=== PATIENT | female | born 1975 | race Caucasian/White ===

== ENCOUNTER → 2018-09-28 | Outpatient (REF) | payer OTHER ==
[~2018-09-28] MED LIST: ATOR1TAB21; DULE100A INH; INSUHUMDS SC; OMEP20CA3 PO; PANT40TA3 PO; SUCR1SS PO; TYLE650T25 PO; VENTAER
== END ==
LOC: M LAB LCGH 11:12
PROVIDERS: ATTEND Nurse Practitioner Adult Health
DX: Z12.4 Encounter for screening for malignant neoplasm of cervix (principal)

== ENCOUNTER 2019-02-21 21:24 | Emergency (ER) | payer OTHER ==
[~2019-02-21] VITALS: Ht 152.4 cm; Wt 68.6 kg
[2019-02-21 21:24] VITALS: BP 161/84
[~2019-02-21 21:24] MED LIST changes: -OMEP20CA3 PO; +OMEP20CA4 PO
== END 2019-02-21 23:54 | disposition home or self-care (01) ==
LOC: M ED 21:24
DX: Z01.10 Encounter for examination of ears and hearing without abnormal findings (principal); J45.909 Unspecified asthma, uncomplicated; E11.9 Type 2 diabetes mellitus without complications; Z96.41 Presence of insulin pump (external) (internal); Z79.4 Long term (current) use of insulin; Z13.9 Encounter for screening, unspecified

== ENCOUNTER 2019-03-02 19:28 | Emergency (ER) | payer OTHER ==
[~2019-03-02] VITALS: Ht 152.4 cm; Wt 68.6 kg
[2019-03-02 20:12] LABS: BASO # 0.1 10^3/uL (0.0-0.2); BASO % 0.7 % (0.0-1.0); EOS # 0.5 10^3/uL (0.0-0.5); EOS % 6.9 % (0.0-3.0); HEMATOCRIT 35.6 % (36.0-47.0); LYMPH # 1.5 10^3/uL (1.5-5.0); LYMPH % 21.6 % (24.0-44.0); MEAN CORPUSCULAR HEMOGLOBIN 31.7 pg (27.0-33.0); MEAN CORPUSCULAR HGB CONC 33.7 g/dl (32.0-36.5); MEAN CORPUSCULAR VOLUME 94.2 fl (80.0-96.0); MONO # 0.7 10^3/uL (0.0-0.8); MONO % 10.1 % (0.0-5.0); NEUTROPHILS % 60.3 % (36.0-66.0); PLATELET COUNT, AUTOMATED 374 10^3/uL (150-450); RED BLOOD COUNT 3.78 10^6/uL (4.00-5.40); WHITE BLOOD COUNT 6.7 10^3/uL (4.0-10.0)
--- NOTE | 2019-03-02 20:17 | REPVR ---
EXAM: CT Head Without Contrast EXAM DATE/TIME: 03/02/2019 7:57 PM CLINICAL HISTORY: 43 years old, female; Dizziness; Additional info: CVA - nursing interventions must not delay CT TECHNIQUE: Imaging protocol: Computed tomography of the head without contrast. Radiation optimization: All CT scans at this facility use at least one of these dose optimization techniques: automated exposure control; mA and/or kV adjustment per patient size (includes targeted exams where dose is matched to clinical indication); or iterative reconstruction. Other technique: STROKE PROTOCOL was implemented. COMPARISON: CT Head without contrast 08/31/2015 1:31 AM FINDINGS: Brain: No hemorrhage. Unremarkable white matter for the patient's age. No mass effect. No evolving territorial infarct. Ventricles: Stable. No ventriculomegaly. Bones/joints: Unremarkable. No acute fracture. Sinuses: Visualized sinuses are unremarkable. No fluid levels. Mastoid air cells: Visualized mastoid air cells are well aerated. Soft tissues: Unremarkable. IMPRESSION: 1. No acute intracranial abnormality seen. 2. ASPECT ([place] Stroke Program Early CT Score) = 10. Electronically signed by: Sara Salazar On 03/02/2019 20:16:44 PM
[2019-03-02 20:25] LABS: INR 0.98; PROTHROMBIN TIME 12.7 SECONDS (11.8-14.0)
[2019-03-02 20:38] LABS: BLOOD UREA NITROGEN 6 MG/DL (7-18); CALCIUM LEVEL 8.7 MG/DL (8.5-10.1); CARBON DIOXIDE LEVEL 29 MEQ/L (21-32); CHLORIDE LEVEL 97 MEQ/L (98-107); CK-MB VALUE MASS < 1.0 NG/ML (<3.6); CPK CREATINE PHOSPHOKINASE 58 U/L (26-192); CREATININE FOR GFR 0.76 MG/DL (0.55-1.30); GLOMERULAR FILTRATION RATE > 60.0 (>58); GLUCOSE, FASTING 235 MG/DL (70-100); MB/CK RELATIVE INDEX 1.72 (< OR =4); POTASSIUM SERUM 4.1 MEQ/L (3.5-5.1); SODIUM LEVEL 131 MEQ/L (136-145); TROPONIN I < 0.02 NG/ML (< 0.10)
[2019-03-02] MEDS ORDERED: LORazepam 2 MG/ML VIAL (J2060) IV STA (23:24)
[2019-03-02 23:27] LABS: CK-MB VALUE MASS < 1.0 NG/ML (<3.6); CPK CREATINE PHOSPHOKINASE 71 U/L (26-192); MB/CK RELATIVE INDEX 1.41 (< OR =4); TROPONIN I < 0.02 NG/ML (< 0.10)
--- NOTE | 2019-03-03 01:20 | REPVR ---
EXAM: MR Angiogram Head Without Contrast, Arteries EXAM DATE/TIME: 03/02/2019 12:04 AM CLINICAL HISTORY: 43 years old, female; Headache; Patient HX: H/a facial numbness on RT side that has since subsided; Additional info: Right sided facial numbness with difficulty spelling words TECHNIQUE: Imaging protocol: MR angiogram head without contrast. Exam focused on the arteries. 3D rendering: MIP reconstructed images were created and reviewed. COMPARISON: CT Head without contrast 03/02/2019 7:56 PM FINDINGS: Right internal carotid artery: Unremarkable. Intracranial segment is patent with no significant stenosis. No aneurysm. Right anterior cerebral artery: Unremarkable. No occlusion or significant stenosis. No aneurysm. Right middle cerebral artery: Unremarkable. No occlusion or significant stenosis. No aneurysm. Right posterior cerebral artery: Unremarkable. No occlusion or significant stenosis. No aneurysm. Right vertebral artery: Unremarkable. No occlusion or significant stenosis. No aneurysm. Left internal carotid artery: Unremarkable. Intracranial segment is patent with no significant stenosis. No aneurysm. Left anterior cerebral artery: Unremarkable. No occlusion or significant stenosis. No aneurysm. Left middle cerebral artery: Unremarkable. No occlusion or significant stenosis. No aneurysm. Left posterior cerebral artery: Unremarkable. No occlusion or significant stenosis. No aneurysm. Left vertebral artery: Unremarkable. No occlusion or significant stenosis. No aneurysm. Basilar artery: Unremarkable. No occlusion or significant stenosis. No aneurysm. IMPRESSION: No acute findings. Electronically signed by: Raghav Ferguson On 03/03/2019 01:19:49 AM
--- NOTE | 2019-03-03 01:28 | REPVR ---
EXAM: MR Head Without Contrast EXAM DATE/TIME: 03/02/2019 12:04 AM CLINICAL HISTORY: 43 years old, female; Other: H/a facial numbness on RT side that has since subsided; Additional info: Right sided facial numbness with difficulty spelling words TECHNIQUE: Imaging protocol: MR of the head without contrast. COMPARISON: CT Head without contrast 03/02/2019 7:56 PM FINDINGS: Brain: Normal. No acute infarct. No hemorrhage. No significant white matter disease. No edema. Ventricles: Normal. No ventriculomegaly. Bones/joints: Unremarkable. Soft tissues: Normal. Sinuses: Mild ethmoid and maxillary sinus mucosal thickening. No acute sinusitis. Mastoid air cells: Normal as visualized. No mastoid effusion. Orbits: Unremarkable. IMPRESSION: No acute intracranial pathology. Electronically signed by: Raghav Ferguson On 03/03/2019 01:27:35 AM
[2019-03-03 02:48] VITALS: BP 111/57
--- NOTE | 2019-03-03 08:13 | ECGEPIP ---
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
--- NOTE | 2019-03-03 08:19 | ECGEPIP ---
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
--- NOTE | 2019-03-03 08:52 | REP ---
Chest x-ray: Single view. History: CVA. Comparison chest x-ray: September 12, 2012. Findings: EKG monitoring electrodes overlie the chest. Lungs are symmetrically aerated and clear. The pleural angles are sharp. Cardiomediastinal silhouette and bony thorax are unremarkable. Impression: Negative PA chest. Electronically Signed by Adolph Littlejohn MD 03/03/2019 12:49 P
== END 2019-03-03 03:03 | disposition home or self-care (01) ==
LOC: M ED 19:28
DX: R20.2 Paresthesia of skin (principal); R42 Dizziness and giddiness; E10.9 Type 1 diabetes mellitus without complications; E78.5 Hyperlipidemia, unspecified; G43.909 Migraine, unspecified, not intractable, without status migrainosus; Z91.048 Other nonmedicinal substance allergy status; Z79.4 Long term (current) use of insulin; Z79.51 Long term (current) use of inhaled steroids; Z79.899 Other long term (current) drug therapy
CPT/HCPCS: 70450; 70544; 70551; 71045; 80048; 82550; 82553; 84484; 85025; 85610; 85730; 86850; 86900; 86901; 93005; 93041; 94760; 96374; 99285; J2060

== ENCOUNTER → 2019-07-18 | Outpatient (CLI) | payer OTHER ==
[~2019-07-18] MED LIST changes: +OMEP1CAP73 PO; -OMEP20CA4 PO
[2019-07-18 07:58] LABS: BASO # 0.1 10^3/uL (0.0-0.2); EOS # 0.5 10^3/uL (0.0-0.5); EOS % 4.3 % (0.0-3.0); HEMATOCRIT 41.2 % (36.0-47.0); HEMOGLOBIN 13.5 g/dl (12.0-15.5); LYMPH # 1.4 10^3/uL (1.5-5.0); LYMPH % 12.3 % (24.0-44.0); MEAN CORPUSCULAR HEMOGLOBIN 30.7 pg (27.0-33.0); MEAN CORPUSCULAR HGB CONC 32.8 g/dl (32.0-36.5); MEAN CORPUSCULAR VOLUME 93.6 fl (80.0-96.0); MONO # 0.5 10^3/uL (0.0-0.8); MONO % 4.9 % (0.0-5.0); NEUTROPHILS # 8.5 10^3/uL (1.5-8.5); PLATELET COUNT, AUTOMATED 442 10^3/uL (150-450); WHITE BLOOD COUNT 11.1 10^3/uL (4.0-10.0)
[2019-07-18 08:34] LABS: ALBUMIN 3.8 GM/DL (3.2-5.2); ALT/SGPT 20 U/L (12-78); BILIRUBIN,TOTAL 0.8 MG/DL (0.2-1.0); BLOOD UREA NITROGEN 16 MG/DL (7-18); CALCIUM LEVEL 9.1 MG/DL (8.5-10.1); CARBON DIOXIDE LEVEL 29 MEQ/L (21-32); CHLORIDE LEVEL 99 MEQ/L (98-107); CHOLESTEROL LEVEL 182 MG/DL (<200); CHOLESTEROL RISK RATIO 2.676 (<5); CPK CREATINE PHOSPHOKINASE 53 U/L (26-192); CREATININE FOR GFR 0.98 MG/DL (0.55-1.30); FERRITIN 32 NG/ML (8-252); FREE T3 2.8 PG/ML (2.2-4.0); FREE T4 0.91 NG/DL (0.76-1.46); GLOMERULAR FILTRATION RATE > 60.0 (>58); GLUCOSE, FASTING 338 MG/DL (70-100); HDL CHOLESTEROL 68 MG/DL (>40); IRON (FE) 104 UG/DL (50-170); LDL CHOLESTEROL 99 MG/DL (<100); NON-HDL-C 114 MG/DL; POTASSIUM SERUM 4.5 MEQ/L (3.5-5.1); SODIUM LEVEL 134 MEQ/L (136-145); TOTAL PROTEIN 7.6 GM/DL (6.4-8.2); TRIGLYCERIDES LEVEL 75 MG/DL (<150); URIC ACID 4.8 MG/DL (2.6-6.0)
[2019-07-18 10:31] LABS: TOTAL 25(OH) VITAMIN D 47.6 NG/ML (30.0-100.0); VITAMIN B12 LEVEL > 2000 PG/ML (247-911)
== END ==
LOC: M LAB 07:33
PROVIDERS: ATTEND Family Medicine
DX: Z00.00 Encounter for general adult medical examination without abnormal findings (principal); E10.9 Type 1 diabetes mellitus without complications; E55.9 Vitamin D deficiency, unspecified; R53.83 Other fatigue; Z79.899 Other long term (current) drug therapy

== ENCOUNTER → 2020-03-27 | Outpatient (CLI) | payer OTHER ==
[~2020-03-27] MED LIST changes: +PANT40TA29 PO; -PANT40TA3 PO
[2020-03-27 08:14] LABS: BASO # 0.1 10^3/uL (0.0-0.2); BASO % 0.9 % (0.0-1.0); EOS # 0.5 10^3/uL (0.0-0.5); EOS % 4.6 % (0.0-3.0); HEMATOCRIT 39.9 % (36.0-47.0); HEMOGLOBIN 12.8 g/dl (12.0-15.5); LYMPH # 1.4 10^3/uL (1.5-5.0); MEAN CORPUSCULAR HEMOGLOBIN 30.8 pg (27.0-33.0); MEAN CORPUSCULAR HGB CONC 32.1 g/dl (32.0-36.5); MEAN CORPUSCULAR VOLUME 96.1 fl (80.0-96.0); MONO # 0.6 10^3/uL (0.0-0.8); MONO % 6.3 % (0.0-5.0); NEUTROPHILS # 7.2 10^3/uL (1.5-8.5); NEUTROPHILS % 73.7 % (36.0-66.0); PLATELET COUNT, AUTOMATED 362 10^3/uL (150-450); RED BLOOD COUNT 4.15 10^6/uL (4.00-5.40); WHITE BLOOD COUNT 9.8 10^3/uL (4.0-10.0)
[2020-03-27 08:21] LABS: APPEARANCE, URINE HAZY (CLEAR); BACTERIA, URINE AUTO NEGATIVE (NEGATIVE); BILIRUBIN, URINE AUTO NEGATIVE (NEGATIVE); BLOOD, URINE BLOOD NEGATIVE (NEGATIVE); COLOR, URINE YELLOW (YELLOW); GLUCOSE, URINE (UA) AUTO 3+ mg/dL (NEGATIVE); KETONE, URINE AUTO 2+ mg/dL (NEGATIVE); LEUKOCYTE ESTERASE, URINE AUTO NEGATIVE (NEGATIVE); MUCUS, URINE SMALL (NEGATIVE); NITRITE, URINE AUTO NEGATIVE (NEGATIVE); PROTEIN, URINE AUTO NEGATIVE (NEGATIVE); RBC, URINE AUTO 1 /HPF (0-3); SQUAMOUS EPITHELIAL CELL UR AU 0 /HPF (0-6); UROBILINOGEN, URINE AUTO 0.2 mg/dL (0.0-2.0); WBC, URINE AUTO 1 /HPF (0-3)
[2020-03-27 08:54] LABS: CREATININE, URINE 38.9 MG/DL; MALB URINE SIEMENS < 5.0 MG/L; MAU/CREAT RATIO 12.8 MCG/MG (0.0-30.0)
[2020-03-27 09:40] LABS: ALBUMIN 3.8 GM/DL (3.2-5.2); ALT/SGPT 22 U/L (12-78); BILIRUBIN,TOTAL 0.9 MG/DL (0.2-1.0); BLOOD UREA NITROGEN 16 MG/DL (7-18); CALCIUM LEVEL 9.4 MG/DL (8.5-10.1); CARBON DIOXIDE LEVEL 25 MEQ/L (21-32); CHLORIDE LEVEL 97 MEQ/L (98-107); CHOLESTEROL LEVEL 165 MG/DL (<200); CREATININE FOR GFR 0.97 MG/DL (0.55-1.30); GLOMERULAR FILTRATION RATE > 60.0 (>58); GLUCOSE, FASTING 414 MG/DL (70-100); HDL CHOLESTEROL 66 MG/DL (>40); LDL CHOLESTEROL 74 MG/DL (<100); NON-HDL-C 99 MG/DL; POTASSIUM SERUM 4.5 MEQ/L (3.5-5.1); SODIUM LEVEL 132 MEQ/L (136-145); TOTAL 25(OH) VITAMIN D 59.5 NG/ML (30.0-100.0); TOTAL PROTEIN 7.4 GM/DL (6.4-8.2); TRIGLYCERIDES LEVEL 126 MG/DL (<150); VITAMIN B12 LEVEL 1350 PG/ML (247-911)
== END ==
LOC: M LAB 07:08
PROVIDERS: ATTEND Internal Medicine Endocrinology, Diabetes & Metabolism
DX: E10.65 Type 1 diabetes mellitus with hyperglycemia (principal)

== ENCOUNTER → 2021-09-08 | Outpatient (REF) | payer OTHER | LOC: M LAB REF 23:00 | PROVIDERS: ATTEND Physician Assistant | DX: R30.0 Dysuria (principal) ==

== ENCOUNTER → 2021-10-02 | Outpatient (CLI) | payer OTHER | LOC: M WHC 13:09 | PROVIDERS: ATTEND Family Medicine | DX: N39.0 Urinary tract infection, site not specified (principal) ==

== ENCOUNTER → 2021-10-23 | Outpatient (REF) | payer OTHER ==
[2021-10-23 18:09] LABS: APPEARANCE, URINE CLEAR (CLEAR); BACTERIA, URINE AUTO NEGATIVE (NEGATIVE); BILIRUBIN, URINE AUTO NEGATIVE (NEGATIVE); BLOOD, URINE BLOOD NEGATIVE (NEGATIVE); COLOR, URINE YELLOW (YELLOW); GLUCOSE, URINE (UA) AUTO 3+ mg/dL (NEGATIVE); KETONE, URINE AUTO NEGATIVE (NEGATIVE); LEUKOCYTE ESTERASE, URINE AUTO NEGATIVE (NEGATIVE); NITRITE, URINE AUTO NEGATIVE (NEGATIVE); PROTEIN, URINE AUTO NEGATIVE (NEGATIVE); RBC, URINE AUTO 0 /HPF (0-3); SPECIFIC GRAVITY URINE AUTO 1.009 (1.002-1.035); SQUAMOUS EPITHELIAL CELL UR AU 0 /HPF (0-6); UROBILINOGEN, URINE AUTO 0.2 mg/dL (0.0-2.0); WBC, URINE AUTO 0 /HPF (0-3)
== END ==
LOC: M SMT 16:56
PROVIDERS: ATTEND Nurse Practitioner Women's Health
DX: R30.0 Dysuria (principal)

== ENCOUNTER 2023-01-23 21:50 | Emergency (ER) | payer OTHER ==
[~2023-01-23] VITALS: Ht 152.4 cm; Wt 73.9 kg
[~2023-01-23 21:50] MED LIST changes: -DULE100A INH; +MOME13HF8 INH
[2023-01-23 21:51] VITALS: TEMP 99.5
[2023-01-23 22:38] LABS: BASO # 0.1 10^3/uL (0.0-0.2); BASO % 0.6 % (0.0-1.0); EOS # 0.2 10^3/uL (0.0-0.5); EOS % 1.8 % (0.0-3.0); HEMATOCRIT 39.4 % (36.0-47.0); HEMOGLOBIN 13.4 g/dl (12.0-15.5); LYMPH # 0.5 10^3/uL (1.5-5.0); LYMPH % 4.6 % (24.0-44.0); MEAN CORPUSCULAR HEMOGLOBIN 31.7 pg (27.0-33.0); MEAN CORPUSCULAR VOLUME 93.1 fl (80.0-96.0); MONO # 0.5 10^3/uL (0.0-0.8); NEUTROPHILS # 10.1 10^3/uL (1.5-8.5); NEUTROPHILS % 88.6 % (36.0-66.0); PLATELET COUNT, AUTOMATED 318 10^3/uL (150-450); RED BLOOD COUNT 4.23 10^6/uL (4.00-5.40); WHITE BLOOD COUNT 11.4 10^3/uL (4.0-10.0)
[2023-01-23 22:43] LABS: VENOUS BASE EXCESS -0.3 (-2.0-2.0); VENOUS HCO3 23.7 MMOL/L (23.0-27.0); VENOUS O2 SATURATION 97.8 % (60.0-80.0); VENOUS PARTIAL PRESSURE CO2 36.9 mmHg (38.0-50.0); VENOUS PARTIAL PRESSURE O2 111.3 mmHg (30.0-50.0); VENOUS PH 7.425 UNITS (7.330-7.430); VENOUS STANDARD HCO3 24.2 MMOL/L; VENOUS TOTAL CO2 24.8 MMOL/L (24.0-28.0)
[2023-01-23] MEDS ORDERED: NS 1,000 ML IV ONE (22:55)
[2023-01-23 23:00] LABS: PARTIAL THROMBOPLASTIN TIME 23.4 SECONDS (24.8-34.2)
[2023-01-23 23:02] LABS: D-DIMER QUANT 622.19 ng/ml (<500)
[2023-01-23 23:16] VITALS: BP 152/63
[2023-01-23 23:17] LABS: LIPASE 26 U/L (12-53)
[2023-01-23] MEDS ORDERED: ISOVUE-370 76% 100ML VIAL As Ordered ONE (23:18)
[2023-01-23 23:19] LABS: RSV AMPLIFICATION NEGATIVE (NEGATIVE)
[2023-01-23 23:20] LABS: ALBUMIN 3.6 G/DL (3.2-5.2); ALKALINE PHOSPHATASE 87 U/L (46-116); ALT/SGPT 19 U/L (7.0-40); AST/SGOT 17 U/L (<34); BILIRUBIN,DIRECT 0.3 MG/DL (<0.4); BLOOD UREA NITROGEN 9 MG/DL (9-23); CALCIUM LEVEL 8.7 MG/DL (8.5-10.1); CARBON DIOXIDE LEVEL 22 MMOL/L (20-31); CHLORIDE LEVEL 99 MMOL/L (98-107); CK-MB VALUE MASS < 1.0 NG/ML (<3.6); CPK CREATINE PHOSPHOKINASE 102 U/L (34-145); CREATININE FOR GFR 0.83 MG/DL (0.55-1.30); GLOMERULAR FILTRATION RATE > 60.0 (>58); GLUCOSE, FASTING 139 MG/DL (60-100); MB/CK RELATIVE INDEX 0.98 (< OR =4); POTASSIUM SERUM 3.8 MMOL/L (3.5-5.1); SODIUM LEVEL 132 MMOL/L (136-145); TOTAL PROTEIN 6.6 G/DL (5.7-8.2)
[2023-01-23 23:23] LABS: ACETONE/KETONE 0.98 MMOL/L (0.02-0.27)
[2023-01-23 23:42] LABS: OSMOLALITY SERUM 267 MOSM/KG (275-295)
[2023-01-23 23:45] LABS: HEMOGLOBIN A1c 7.9 % (4.0-6.0)
[2023-01-23] MEDS ORDERED: CIPROFLOXACIN 400 MG in IV 1 EA IV ONE (23:45)
[2023-01-23 23:50] VITALS: O2SAT 96
[2023-01-24] MEDS ORDERED: CIPR-249 PO (00:57)
== END 2023-01-24 03:17 | disposition home or self-care (01) ==
LOC: M ED 21:50
DX: R07.9 Chest pain, unspecified (principal); N39.0 Urinary tract infection, site not specified; R00.0 Tachycardia, unspecified; E10.9 Type 1 diabetes mellitus without complications; K21.9 Gastro-esophageal reflux disease without esophagitis; F10.10 Alcohol abuse, uncomplicated; E78.5 Hyperlipidemia, unspecified; Z91.048 Other nonmedicinal substance allergy status; Z79.52 Long term (current) use of systemic steroids; Z79.02 Long term (current) use of antithrombotics/antiplatelets; Z79.899 Other long term (current) drug therapy
CPT/HCPCS: 71045; 71275; 80047; 80048; 80076; 81001; 82010; 82550; 82553; 82803; 83036; 83690; 83930; 84484; 85025; 85379; 85730; 87086; 87631; 93005; 93041; 94760; 96365; 96366; 99285; J0744; Q9967